=== PATIENT | male | born 1980 | race Two or more races ===

== ENCOUNTER 2017-11-22 09:52 | Outpatient (CLI) | payer OTHER | END 2017-11-22 09:53 | disposition home or self-care (01) | LOC: SC 09:52 | PROVIDERS: ATTEND Internal Medicine Pulmonary Disease | DX: R06.83 Snoring (principal) | CPT/HCPCS: 99203; 99212 ==

== ENCOUNTER 2018-01-16 19:17 | Outpatient (CLI) | payer OTHER | END 2018-01-16 19:18 | disposition home or self-care (01) | LOC: SC 19:17 | PROVIDERS: ATTEND Internal Medicine Pulmonary Disease | DX: G47.61 Periodic limb movement disorder (principal) | CPT/HCPCS: 95810 ==

== ENCOUNTER 2020-01-22 16:51 | Outpatient (CLI) | payer OTHER ==
--- NOTE | 2020-01-22 12:21 | SLEEP CARE CONSULTATION ---
Information from patient questionnaire entered by Izabella Pearce. I have reviewed and concur with the information entered by Izabella Pearce. This document represents the service I personally performed and the decisions made by me, Rosalina Vergara RN, MSN, C UNIX DEVELOPER. 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 reqs and overall health if positive) Duration of Symptoms: years Usual bedtime: 11-12pm Time it takes to fall asleep: 15 minutes or less Snores at night: Yes (most nights per spouse and can be loud) Observed to quit breathing while asleep: No Sleeps alone due to snoring: No Number of times waking at night: 0-1 Reasons for waking at night: reports: Bathroom Toss, Turn, or Twitch while sleeping: Yes (sometimes to change position ) Recalls having dreams: Yes Usually gets out of bed at: 5:30-6am Feels refreshed in the morning: Yes Morning headache: No Sleepy or fatigued during the day: No Ever fallen asleep while driving: No Takes day naps: No Dreams during day naps: No Prior sleep studies: Yes Year and Where: 01/16/18 - Parasomnia Symptoms Ever been unable to move upon waking from sleep: No Walks in sleep: No Talks in sleep: No Ever acted out dreams in sleep: No Ever felt weak in the knees when startled or emotional: No Bothered by creepy, crawly, restless sensations in legs: No Problems with memory or concentration: No Subjective Initial [place] Sleepiness Scale score: 0 Past Medical History Past Medical History: reports: Hypertension. denies: Dysphagia, Claustrophobia, Congestive Heart Failure, Diabetes, Stroke, Arthritis, Coronary Heart Disease, Insulin resistance, Gout, Arrythmia, Hypothyroidism, Fibromyalgia, Anemia, Anxie ty, Impotence, Asthma, Depression, Emphysema, Mood disorder, GERD, Attention deficit, Other Social History The patient's occupation is a UNKNOWN. Patient is and lives in . Have you smoked in the past 12 months: No Alcohol use: Yes Alcohol amount and frequency: 2-3 times a week or less Caffeine use: Yes Caffeine amount and frequency: 2 -3 cups a day Family History Family Hx Sleep Apnea: Grandparent: Snoring, Sleep apnea - Treated Allergies and Home Medications Known drug allergies: Yes (Ceclor) Home medication list reviewed: Yes Allergy and home medication list: amlodipine 10 mg daily Chlothaladone 25mg daily anti inflamatory daily Review of Systems Review of systems same as previous: Yes Cardiovascular: reports: high blood pressure. denies: palpitations, chest pain, irregular heart rate or pulse, leg or foot swelling, have to sleep sitting up, other Respiratory: denies: shortness of breath, wheeze, sputum production, chronic cough, other Gastrointestinal: denies: heartburn, difficulty swallowing, nausea, vomitting, diarrhea, abdominal pain, other Urinary: denies: incontinence, frequency, urgency, impotence, other Neurological: denies: headaches, seizure, head trauma, disorientation, speech dysfunction, gait or balance problems, fainting or unconsciousness, other Psychiatric: denies: Attention Deficit Hyperactivity, anxiety, depression, mood disorder, claustrophobia, other Ear/Nose/Throat: denies: nasal congestion, sinus problems, nose bleeds, dry mouth/throat, hoarseness, injury to nose, tonsillectomy, wisdom teeth removed, other Endocrine: denies: thyroid disease, history of goiter, sluggishness, too hot or cold, excessive thirst, increased appetite, increased urination, unexplained weakness, other Musculoskeletal: reports: back pain, muscle pain or cramping. denies: joint pain, neck pain, joint swelling, mobility problems, other Immunologic: denies: sneezing, rash, itching, allergies to food or environment, other Physical Exam Height: 6 ft 6 in Weight: 320 lb (home weight) Body Mass Index: 36.9 BMI Classification: Obese Impression and Plan 1. Suspected Obstructive Sleep Apnea-Hypopnea Syndrome, as previously diagnosed in December 2017 with mild apnea of 13.4 but 28 supine and lowest oxygen saturation of 28%. Current history is loud and irregular snoring. He has no sleepiness symptoms as noted before in his previous history. 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 In addition, he has hypertension which can be caused by untreated obstructive apnea. His weight is similar to first sleep study in 2018 with only 7 pounds loss since then. He is also obese with BMI of 36. Narrow oropharynx and obesity are common predisposing factors for obstructive sleep apnea-hypopnea syndrome.I recommend proceeding to polysomnography to confirm the diagnosis and to assess severity. If the patient has significant sleep disordered breathing, a manual CPAP titration study will also be performed to find the optimal treatment pressure. I informed the patient of what the sleep studies involve and after some discussion, obtained agreement to proceed. The pathophysiology of obstructive sleep apnea-hypopnea syndrome was discussed with the patient and health risks of cardiovascular and cerebrovascular disease if not treated. Risks of drowsy driving discussed in detail and patient advised to avoid long distance driving and to warehouse order puller at the first sign of drowsiness. Patient agreed to plan. * Schedule polysomnography * Avoid long distance driving or driving when feeling sleepy. * Avoid alcohol, sedative and muscle relaxant around bedtime. * Attempt to lose weight. * Review instructions provided by trained office staff on how to prepare for the sleep study. * Return for follow-up after sleep study completed. Visit Type: Telehealth Video (to reduce risk of Covid 19 exposure) Video Type: [employer] Patient Location: car Location of Provider: Home Patient agrees and consents to this telehealth visit type: Yes Patient agrees to have their insurance billed: Yes Time Spent with Patient (minutes): 27 Provider Statement: I spent 100% of the Telehealth Video Call with the patient with greater than 50% spent counseling the patient and coordination of care.
== END 2020-01-22 16:52 | disposition home or self-care (01) ==
LOC: SC 16:51
PROVIDERS: ATTEND Nurse Practitioner Family
DX: G47.33 Obstructive sleep apnea (adult) (pediatric) (principal); R06.83 Snoring; E66.9 Obesity, unspecified; Z68.36 Body mass index [BMI] 36.0-36.9, adult

== ENCOUNTER 2020-03-17 20:31 | Outpatient (CLI) | payer OTHER | END 2020-03-17 20:32 | disposition home or self-care (01) | LOC: SC 20:31 | PROVIDERS: ATTEND Internal Medicine Pulmonary Disease | DX: G47.33 Obstructive sleep apnea (adult) (pediatric) (principal); E66.9 Obesity, unspecified; Z68.37 Body mass index [BMI] 37.0-37.9, adult | CPT/HCPCS: 95810 ==

== ENCOUNTER 2020-04-04 15:40 | Outpatient (CLI) | payer OTHER ==
[2020-04-04 17:28] VITALS: BP 142/86
--- NOTE | 2020-04-04 17:28 | SLEEP CARE CONSULTATION ---
Information from patient questionnaire entered by Natividad Dailey. I have reviewed and concur with the information entered by Natividad Dailey. This document represents the service I personally performed and the decisions made by me, Rosalina Vergara, RN, MSN, METAL CRAFTS TEACHER. History of Present Illness Service Date and Time: 04/04/2020 1540 Initial [place] Sleepiness Scale score: 0 (in 2018) Current [place] Sleepiness Scale score: 0 Additional HPI information: DEB BARRAZA returns for follow up and results of the recently performed polysomnography. I explained the pathophysiology behind obstructive sleep apnea. We then spent quite a bit of time discussing different treatment options. For mild obstructive sleep apnea, surgery and oral appliance are alternatives to nasal CPAP therapy but in moderate or severe cases, nasal CPAP is the most effective and reliable treatment. Because of his hypertension, CPAP is the gold standard of treatment. Because apnea is primarily in supine position, then positional management therapy could be effective. Methods discussed such as positioning with pillows, using a T-shirt with tennis balls in the back, and shown commercial products that have a pillow format on back to prevent supine sleep. I reviewed the impact of weight changes on sleep apnea and strongly recommended losing weight. After some discussion, the patient opted to go with the nasal CPAP therapy. Nasal autoCPAP set at [id number] will be ordered with rationale explained. A manual titration study will be ordered if unable to find optimal pressure with office adjustments. I explained how CPAP machine works with sample devices Respironics Dreamstation and ResMed [id number] and what to expect when using the machine. Using CPAP every night in order to get used to it was emphasized. Patient advised to put CPAP mask on before getting into bed so as not to fall asleep without CPAP. To assist acclimation to CPAP use, it could also be used for a short time during day while reading or watching TV. The patient was instructed to call the CPAP supplier to discuss any mechanical problem that may occur. If the mask given is uncomfortable or is difficult to keep on through the night even with adjustment, contact the CPAP supplier as many will replace with another mask style if notified before 30 days. If snoring or perceives is not getting enough air or too much air from the machine, notify this office. AAS patient education PAP tips . Patient counseled not drink alcohol less than 4 hours before bedtime as it can increase snoring and apnea. Patient was cautioned about risks of drowsy driving until sleepiness symptoms resolve. Patient denies drowsy driving. AAS patient education on snoring and sleep apnea given and reviewed. Sleep Study - Results Type of Sleep Study: Polysomnography Polysomnography/Home Sleep Study results: The quality of the study is good. The patient had normal sleep efficiency. The sleep architecture was normal. Respiratory monitoring showed mild obstructive sleep apnea-hypopnea (AHI = 5.3) associated with oxyhemoglobin desaturation and mild hypoxia (yoni oxygen saturation of 85%) but not sleep fragmentation. The respiratory events occurred almost exclusively during supine sleep (supine AHI = 11.7; non-supine = 0.54). Snore was loud in intensity. There was no significant periodic leg movement of sleep. Cardiac rhythm was normal sinus rhythm without significant arrhythmia. No abnormal behavior (parasomnia) observed during the night. Allergies and Home Medications Known drug allergies: Yes (ceclor) Home medication list reviewed: No (changed his anti inflamatory) Review of Systems Review of systems same as previous: Yes Physical Exam Blood Pressure: 142/86 Cuff size: long Heart Rate: 70 O2 Saturation: 98 Height: 6 ft 6 in Weight: 308 lb Body Mass Index: 35.6 BMI Classification: Obese Impression and Plan 1. Obstructive Sleep Apnea-Hypopnea Syndrome, mild with supine AHI of 11.7, with lowest oxygen saturation of 85%. Positive pressure therapy could benefit his hypertension. As mentioned above, the patient will be started on nasal autoCPAP therapy with pressure set at 4-15 cmH2O. A manual titration study will be completed if unable to find optimal treatment pressure with office adjustments. Compliance guidelines also reviewed. A copy of compliance guidelines will be given for reference at check out. Because the apnea is more severe supine, I instructed to avoid sleeping supine using pillow positioning until able to start CPAP use. Patient has started to lose weight since last seen and his weight was about 315 at time of last study, 327 at study in 2018 and today it is 308. His goal is to get to about 250 pounds. I explained again how weight affects apnea risk as well as CPAP pressure requirements and that if at his weight loss goal his CPAP pressure requirements are at the lowest range, another sleep study can be completed to re evaluate to see if he still has apnea. * * Nasal auto CPAP therapy, pressure at 4-15 cm H2O. * Continue to lose weight. * Avoid alcohol consumption near bedtime. * Avoid supine sleep until using CPAP. * The patient is again cautioned about driving until sleepiness completely resolves. * Return one month after CPAP obtained. I will assess response to therapy and compliance at that time. Visit Type: In Office Time Spent with Patient (minutes): 35 Provider Statement: I spent 100% of the Face to Face Visit with the patient with greater than 50% spent counseling the patient and coordination of care.
== END 2020-04-04 15:41 | disposition home or self-care (01) ==
LOC: SC 15:40
PROVIDERS: ATTEND Nurse Practitioner Family
DX: G47.33 Obstructive sleep apnea (adult) (pediatric) (principal); E66.9 Obesity, unspecified; Z68.35 Body mass index [BMI] 35.0-35.9, adult
CPT/HCPCS: 99212; 99214